=== PATIENT | female | born 1975 | race Two or more races ===

== ENCOUNTER 2024-08-23 06:33 | Day surgery (SDC) | payer MEDICAID ==
[2024-08-23] VITALS (8 sets, daily range): BP systolic 96–126; BP diastolic 65–75; PULSE 75–95; RESP 12–22; O2SAT 96–98
[~2024-08-23] VITALS: Ht 165.1 cm; Wt 106.1 kg
[~2024-08-23 06:33] MED LIST: CALC1TAB92 PO; IBUP-1454 PO; MAGN400T40 PO; METO-289 PO; MULT-1058 PO; PRAV20TA3 PO; VALA500T33 PO
[2024-08-23] MEDS ORDERED: HEPARIN SODIUM (PORCINE) 5000 UNITS/ML 1ML VIAL ONE (08:41)
[2024-08-23] MEDS ORDERED: ANGIOMAX 250 MG VIAL IV ONE (08:41)
[2024-08-23] MEDS ORDERED: LIDOCAINE 2%HCL (LOCAL ANESTH.) INJ 20ML MDV ONE (08:42)
[2024-08-23] MEDS ORDERED: SODIUM CHL 0.9% 0 ML ONE (08:42)
[2024-08-23] MEDS ORDERED: fentaNYL CITRATE 100 MCG/2 ML VL ONE (08:42)
[2024-08-23] MEDS ORDERED: MIDAZOLAM HCL 2MG/2ML 2ml VIAL (1mg/ml) ONE (08:42)
[2024-08-23] MEDS ORDERED: NITROGLYCERIN 50MG/250ML 250 ML IV ONE (08:43)
[2024-08-23] MEDS ORDERED: VERAPAMIL 2.5MG/ML INJ 2ML VIAL IV ONE (08:49)
[2024-08-23] MEDS ORDERED: HEPARIN IN NS 1000Units/500mL 1,500 ML ONE (10:48)
[2024-08-23] MEDS ORDERED: IODIXANOL 320MG/ML 100ML BTL IV ONE (11:34)
--- NOTE | 2024-08-23 12:04 | DVHOP2 ---
Operative Report Procedures performed: Right and left heart catheterization and bilateral coronary angiogram Moderate sedation Diagnosis: No angiographic evidence for obstructive coronary artery disease (normal coronaries) Normal right-sided pressures LVEF of 55% with normal EDP Cardiac suggestion for management: Optimized medical therapy Lifestyle and risk factor modifications Findings: PCW: 9/8/7 mm Hg PA: 30/15/21 mm Hg RV: 31/3/7 mm Hg RA: 7/6/5 mm Hg Cardiac output: 6.33 liters/minute Cardiac index: 3.0 liters/minute per meter LV: 146/3/9 mm Hg LVEF: 55% There was no transaortic valve pressure gradient Left main: Left main was coming off the left sinus of Valsalva. There was no angiographic evidence of disease in left main. LAD: LAD was coming off the left main. It provided the medium-sized D1, medium- sized D2 and small-sized D3. There was no angiographic evidence of disease in LAD throughout its course and branches. Ramus intermedius: Ramus intermedius was a small to medium-sized vessel which came off the left main. There was no angiographic evidence of disease in ramus intermedius. LCX: LCX was coming off the left main. LCX throughout its course and branches did not reveal any angiographic evidence of disease. RCA: RCA was coming off the right sinus of Valsalva. It was the dominant vessel. It provided RPDA/RPLS. RCA throughout its course and branches did not reveal any angiographic evidence of disease. Presentation: Patient is a 49-year-old female who presented to the office with chest discomfort/shortness of breath. Echocardiogram of March 2024 revealed preserved left ventricular systolic function, mild right atrial enlargement and questioned increased right ventricular systolic pressure (questionable finding, maybe around 53 mm Hg). TR jet was poor. Nuclear stress test of April 2024 was abnormal and the patient was sent for right and left heart catheterization. Procedure: After obtaining informed consent, the patient was brought to the senior laboratory technician. She was prepped and draped in sterile fashion. We accessed the femoral area for artery and vein. Using micropuncture and under fluoroscopy guidance, right femoral artery/vein were accessed. Micropuncture sheath was exchanged over a wire to femoral sheaths (6 [place] 4 artery and 7 [place] for vein). A 6 [place] catheter was used to perform right heart catheterization (obtaining pressures and calculating cardiac output: Thermodilution technique). Six [place] JL4 diagnostic catheter was used to perform left coronary angiography. A 6 [place] JR4 diagnostic catheter was used to perform right coronary angiography. A 6 [place] pigtail was used to perform left heart catheterization (obtaining pressures and performing left ventr iculography). Total bleeding was less than 25 mL. There was no dissection/hematoma/perforation. Patient tolerated the procedure with no complication. Artery access site was managed by deploying an Angio-Seal device. Femoral access was managed by manual pressure. Fluoroscopy: 8.3 minutes contrast: 50 mL of Visipaque 2031 mm Hg 02/19/2031 RADHA VRAELA MD Aug 23, 2024 12:04
== END 2024-08-23 15:02 | disposition home or self-care (01) ==
LOC: CATH 06:33
PROVIDERS: ATTEND Internal Medicine Cardiovascular Disease
DX: R06.02 Shortness of breath (principal); R00.2 Palpitations; I51.7 Cardiomegaly; R07.89 Other chest pain; R94.39 Abnormal result of other cardiovascular function study
CPT/HCPCS: 93460; C1760; C1769; C1894; J1644; Q9967; 99152; J2250